=== PATIENT | male | born 1970 | race Caucasian/White ===

== ENCOUNTER 2017-01-20 08:47 | Emergency (ER) | payer OTHER ==
[~2017-01-20] VITALS: Ht 172.7 cm; Wt 85.7 kg
[2017-01-20 08:59] VITALS: BP 139/75; PULSE 71; RESP 16; TEMP 98.5; O2SAT 98
--- NOTE | 2017-01-20 09:44 | PD ---
HPI Chief Complaint: Abdominal Pain Time Seen by Provider: 09:38 Travel History International Travel<30 days: No Contact w/Intl Traveler<30days: No Traveled to known affect area: No History of Present Illness HPI Patient presents with complaints of abdominal/pelvic pain for approximately 3 weeks. Reports urinary frequency with normal stools. Pain is dull primarily in his pelvis region. Denies any blood per stool. Denies any nausea vomiting. Evaluated by his PCP with urinalysis 2. Urinalysis was normal. PSA within normal limits. Prostate exam was normal. Patient was started on Bactrim DS and reports improvement of his pain while taking medication. However pain returned one week ago. Of note he does conceal and carry and while he was in the antibiotic was not carrying. On the Sunday the pain returned patient had began to carry again. Admits to cinching his belt when he carries. PFSH Social History Tobacco Use: No Allergies-Medications (Allergen,Severity, Reaction): Coded Allergies: Penicillins (Verified Allergy, Unknown, 01/20/17) Reported Meds & Prescriptions Reported Meds & Active Scripts Active Reported Aspirin 81 Mg Chew 81 Mg CHEW DAILY Review of Systems General / Constitutional: No: Fever Eyes: No: Visual changes HENT: No: Headaches Cardiovascular: No: Chest Pain or Discomfort Respiratory: No: Shortness of Breath Gastrointestinal: Positive: Abdominal Pain Genitourinary: Positive: Frequency, No: Dysuria Musculoskeletal: No: Pain Skin: No Rash Neurologic: No: Weakness Psychiatric: No: Depression Endocrine: No: Polydipsia Hematologic/Lymphatic: No: Easy Bruising Physical Exam Narrative GENERAL: Well-nourished, well-developed patient. SKIN: Focused skin assessment warm/dry. HEAD: Normocephalic. EYES: No scleral icterus. No injection or drainage. NECK: Supple, trachea midline. No JVD or lymphadenopathy. CARDIOVASCULAR: Regular rate and rhythm without murmurs, gallops, or rubs. RESPIRATORY: Breath sounds equal bilaterally. No accessory muscle use. GASTROINTESTINAL: Abdomen soft, diffusely tender pelvic region, nondistended. MUSCULOSKELETAL: No cyanosis, or edema. BACK: Nontender without obvious deformity. No CVA tenderness. Patient refuses repeat prostate exam Data Data Last Documented VS Vital Signs Date Time Temp Pulse Resp B/P Pulse Ox O2 Delivery O2 Flow Rate FiO2 01/20/17 08:59 98.5 71 16 139/75 98 Orders Complete Blood Count With Diff (01/20/17 09:38) Comprehensive Metabolic Panel (01/20/17 09:38) Lipase (01/20/17 09:38) Lactic Acid (01/20/17 09:38) Urinalysis - C+S If Indicated (01/20/17 09:38) Ct Abd/Pel W Iv Contrast(Rout) (01/20/17 09:38) Iv Access Insert/Monitor (01/20/17 09:38) Ecg Monitoring (01/20/17 09:38) Oximetry (01/20/17 09:38) Sodium Chloride 0.9% Flush (Ns Flush) (01/20/17 09:45) Iohexol 350 Inj (Omnipaque 350 Inj) (01/20/17 10:20) Labs Laboratory Tests Test 01/20/17 01/20/17 09:30 09:50 Urine Collection Type CLEAN CATCH Urine Color YELLOW Urine Turbidity CLEAR Urine pH 5.5 Urine Specific [place] 1.028 Urine Protein NEG mg/dL Urine Glucose (UA) NEG mg/dL Urine Ketones TRACE mg/dL Urine Occult Blood TRACE Urine Nitrite NEG Urine Bilirubin NEG Urine Leukocyte Esterase NEG Urine RBC 0-3 /hpf Urine WBC 0-2 /hpf Urine Squamous Epithelial 0-5 /hpf Cells Urine Mucus FEW /lpf Microscopic Urinalysis Comment CULT NOT INDICATED Urine Collection Time 09:30 White Blood Count 5.1 TH/MM3 Red Blood Count 5.15 MIL/MM3 Hemoglobin 14.9 GM/DL Hematocrit 44.0 % Mean Corpuscular Volume 85.6 FL Mean Corpuscular Hemoglobin 29.0 PG Mean Corpuscular Hemoglobin 33.9 % Concent Red Cell Distribution Width 12.6 % Platelet Count 197 TH/MM3 Mean Platelet Volume 8.6 FL Neutrophils (%) (Auto) 64.3 % Lymphocytes (%) (Auto) 28.9 % Monocytes (%) (Auto) 4.7 % Eosinophils (%) (Auto) 1.0 % Basophils (%) (Auto) 1.1 % Neutrophils # (Auto) 3.2 TH/MM3 Lymphocytes # (Auto) 1.5 TH/MM3 Monocytes # (Auto) 0.2 TH/MM3 Eosinophils # (Auto) 0.1 TH/MM3 Basophils # (Auto) 0.1 TH/MM3 CBC Comment DIFF FINAL Differential Comment Sodium Level 140 MEQ/L Potassium Level 4.2 MEQ/L Chloride Level 107 MEQ/L Carbon Dioxide Level 27.4 MEQ/L Anion Gap 6 MEQ/L Blood Urea Nitrogen 12 MG/DL Creatinine 1.10 MG/DL Estimat Glomerular Filtration 71 ML/MIN Rate Random Glucose 96 MG/DL Lactic Acid Level 0.8 mmol/L Calcium Level 8.9 MG/DL Total Bilirubin 0.5 MG/DL Aspartate Amino Transf 18 U/L (AST/SGOT) Alanine Aminotransferase 33 U/L (ALT/SGPT) Alkaline Phosphatase 81 U/L Total Protein 7.0 GM/DL Albumin 4.0 GM/DL Lipase 142 U/L [facility] Medical Decision Making Medical Screen Exam Complete: Yes Emergency Medical Condition: Yes Differential Diagnosis Prostatitis, cystitis, UTI, abdominal strain Narrative Course Assessment and plan discussed with patient and at bedside. Labs within normal limits. Last 72 hours Impressions Abdomen/Pelvis CT 01/20/17 0938 Signed Impressions: Service Date/Time: Sunday, January 20, 2017 10:09 - CONCLUSION: 1. No evidence for hydronephrosis. 2. No acute inflammatory process. 3. A few diverticula in the sigmoid colon without diverticulitis. Armando Almaraz MD Start patient on oral Levaquin to cover hematuria and possible prostatitis. Discussion had concerning retesting for hematuria and possible referral to urology for cystoscope. Diagnosis Primary Impression: Abdominal pain Qualified Code: R10.30 - Lower abdominal pain Additional Impression: Hematuria Qualified Code: R31.9 - Hematuria, unspecified type Patient Instructions: General Instructions Additional Instructions: Encourage fluids and a cranberry supplement. Antibiotic prophylactically for hematuria. Discussed the pain could likely be abdominal strain while he carries his weapon. Encouraged rest fluids and Motrin. Follow-up with PCP. Return to the emergency room with any onset of new symptoms. Med/Other Pt SpecificInfo: Prescription(s) given Scripts Levofloxacin (Levaquin)500 Mg Jtmgtt313 Mg PO DAILY #7 TAB Prov:Nish Hinkle MD 01/20/17 Disposition: 01 DISCHARGE HOME Condition: Good Nish Hinkle MD Jan 20, 2017 09:44
[2017-01-20] MEDS ORDERED: SODIUM CHLORIDE 0.9% FLUSH 10 ML FLUSH IV FLUSH PRN (09:45)
[2017-01-20 09:56] LABS: AUTOMATED NEUTROPHIL # 3.2 TH/MM3 (1.8-7.7); BASOPHIL # 0.1 TH/MM3 (0-0.2); BASOPHIL % 1.1 % (0.0-2.0); EOSINOPHIL # 0.1 TH/MM3 (0-0.4); HEMO FLAGS DIFF FINAL; LYMPH % 28.9 % (9.0-44.0); LYMPHOCYTE # 1.5 TH/MM3 (1.0-4.8); MEAN CELL VOLUME 85.6 FL (80.0-100.0); MEAN CORPUSCULAR HGB CONC 33.9 % (32.0-36.0); MONO % 4.7 % (0.0-8.0); NEUT % 64.3 % (16.0-70.0); PLATELET COUNT 197 TH/MM3 (150-450); RED BLOOD COUNT 5.15 MIL/MM3 (4.50-5.90); RED CELL DISTRIBUTION WIDTH 12.6 % (11.6-17.2); WHITE BLOOD COUNT 5.1 TH/MM3 (4.0-11.0)
[2017-01-20 09:57] LABS: BLOOD, URINE TRACE (NEG); GLUCOSE,URINE NEG (NEG); KETONE, URINE TRACE mg/dL (NEG); NITRITE,URINE NEG (NEG); PH, URINE 5.5 (5.0-8.5)
[2017-01-20] MEDS ORDERED: ASPI81CH CHEW (10:01)
[2017-01-20 10:05] LABS: CHLORIDE 107 MEQ/L (98-107); POTASSIUM 4.2 MEQ/L (3.5-5.1); SODIUM (NA) 140 MEQ/L (136-145)
[2017-01-20 10:09] LABS: METHOD OF COLLECTION CLEAN CATCH; MUCUS URINE FEW /lpf (OCC); URINE COLOR YELLOW (YELLW/STRAW)
[2017-01-20 10:09] LABS: ANION GAP 6 MEQ/L (5-15); BICARBONATE 27.4 MEQ/L (21.0-32.0); BLOOD UREA NITROGEN 12 MG/DL (7-18)
[2017-01-20 10:10] LABS: COMMENT (UR) CULT NOT INDICATED; CULTURE IF INDICATED CULT NOT INDICATED; RBC, URINE 0-3 /hpf (0-3); SQUAMOUS EPITHELIAL CELL URINE 0-5 /hpf (0-5); WBC, URINE 0-2 /hpf (0-5)
[2017-01-20 10:12] LABS: ALT (GPT) 33 U/L (12-78); AST (GOT) 18 U/L (15-37); GLOMERULAR FILTRATION RATE 71 ML/MIN (>89)
[2017-01-20 10:13] LABS: TOTAL BILIRUBIN ADULT 0.5 MG/DL (0.2-1.0)
[2017-01-20 10:15] LABS: ALKALINE PHOSPHATASE 81 U/L (45-117)
[2017-01-20] MEDS ORDERED: IOHEXOL 350 MG/ML 10 ML VIAL (for RAD DIAG) IV ONE (10:20)
--- NOTE | 2017-01-20 10:25 | RADRPT ---
EXAM DATE/TIME: 01/20/2017 10:09 [place] COMPARISON: No previous studies available for comparison. INDICATIONS : Frequent urinatio, lower abd pain,. slight nausea. IV CONTRAST: 96 cc Omnipaque 350 (iohexol) IV ORAL CONTRAST: No oral contrast ingested. RADIATION DOSE: 12.11 CTDIvol (mGy) MEDICAL HISTORY : None SURGICAL HISTORY : None. ENCOUNTER: Initial ACUITY: 3 weeks PAIN SCALE: 2/10 LOCATION: Bilateral lower abdomen. TECHNIQUE: Volumetric scanning of the abdomen and pelvis was performed. Using automated exposure control and ad justment of the mA and/or kV according to patient size, radiation dose was kept as low as reasonably achievable to obtain optimal diagnostic quality images. DICOM format image data is available electro nically for review and comparison. FINDINGS: LOWER LUNGS: The visualized lower lungs are clear. LIVER: Homogeneous density without lesion. There is no dilation of the biliary tree. No calcified gallston es. SPLEEN: Normal size without lesion. PANCREAS: Within normal limits. KIDNEYS: Normal in size and shape. There is no mass, stone or hydronephrosis. ADRENAL GLANDS: Within normal limits. VASCULAR: There is no aortic aneurysm. BOWEL/MESENTERY: A few scattered diverticula in sigmoid colon. No diverticulitis. There is no free intraperitoneal ai r or fluid. Appendix normal. ABDOMINAL WALL: Within normal limits. RETROPERITONEUM: There is no lymphadenopathy. BLADDER: No wall thickening or mass. Not well distended. No bladder calculi. REPRODUCTIVE: Within normal limits. INGUINAL: There is no lymphadenopathy or hernia. MUSCULOSKELETAL: Within normal limits for patient age. CONCLUSION: 1. No evidence for hydronephrosis. 2. No acute inflammatory process. 3. A few diverticula in the sigmoid colon without diverticulitis. Armando Almaraz MD on January 20, 2017 at 10:20 Board Certified Radiologist. This report was verified electronically.
[2017-01-20] MEDS ORDERED: LEVA500T20 PO (10:44)
[2017-01-20 10:53] VITALS: BP 145/74
== END 2017-01-20 11:02 | disposition home or self-care (01) ==
LOC: PHED 08:47
DX: R10.2 Pelvic and perineal pain (principal); R35.0 Frequency of micturition; R31.9 Hematuria, unspecified
CPT/HCPCS: 74177; 80053; 81001; 83605; 83690; 85025; 99285; Q9967

== ENCOUNTER 2017-01-31 06:29 | Day surgery (SDC) | payer OTHER ==
[~2017-01-31] VITALS: Ht 172.7 cm; Wt 85.7 kg
[~2017-01-31 06:29] MED LIST: ASPI81CH CHEW; LEVA500T20 PO
[2017-01-31] MEDS ORDERED: IOHEXOL 350 MG/ML 100 ML BTL (for Cath Lab) OTHER ONE (06:30)
[2017-01-31] MEDS ORDERED: ZOLP10TA3 PO (07:00)
[2017-01-31] MEDS ORDERED: SODIUM CHLOR 0.9% 1000 ML INJ 1,000 ML IV SCH (07:00)
[2017-01-31 07:04] VITALS: BP 141/90; PULSE 72; RESP 18; TEMP 99; O2SAT 99
[2017-01-31] MEDS ORDERED: HEPARIN-NS/PF INJ 500 ML ONE (08:10)
[2017-01-31] MEDS ORDERED: MIDAZOLAM HCL 2 MG/2 ML VIAL ONE (08:10)
--- NOTE | 2017-01-31 08:55 | CATHPROC ---
[facility] HIS Report Study Information Study Number Admission Scheduled Start Study Start [id number] Jan 31 2017 6:29AM 01/31/2017 Jan 31 2017 8:07AM Michael Service Cardiac Catheterization Admit Source Facility Department Other [facility] - [facility] [employer] Sales Representative Physician and Clinical Staff Initial Duane Chaudhry Strategic Planning DirectorYamilet Rm,SLADE Strategic Planning Director Nazanin Vallecillo BSRN Other cathlab, cathlab Recorder Reece, Elva,STAFF DEVELOPMENT NURSE TECH2 Scrub Jeannie Georges RCIS TECH2 Procedures Performed Procedure Location (Site) Vessel Name Angiogram LV LV Ventricle Coronary Angiograms LCA Left Coronary Coronary Angiograms RCA Right Coronary L Heart Cath Equipment Time Coat Check Attendant Description Size Mfg Part Number Used/Scraped TRANSDUCER, TRUWAVE [id number] 08:17 HARRIS LLOYD * Used W/STOCKCOCK *[id number] 534-620T *[id number] 534-620T *[id number] 534-621T *[id number] 534-621T *[id number] 534-650S *[id number] 534-650S *[id number] 08:17 [employer] PACK, CCL CUSTOM * Used *[id number] 08:17 [employer] PACER PEN, SKIN DUAL W/ RULER * Used *[id number] 08:17 [employer] MEDICAL SHEATH, FR6.5 PRELUDE 11CM FR 6.5 038ACT Used *[id number] 08:17 [employer] MEDICAL WIRE, 3MMJ .035 180CM 180CM Used *[id number] 08:17 NAMIC MANIFOLD, 4 PORT * Used *[id number] 08:17 [employer] OMNIPAQUE, 350 MG, 100ML 100ML [id number] Used [id number] 08:17 [employer] MEDICAL BLANKET,WARM AIR CCL * Used *[id number] History: Current Medications Medication Dosage/Unit Route Frequency Last Date/Time Taken ASA History: Allergies Allergy Reaction Penicillins History: Risk Factors Family History of Hypertension Dyslipidemia Previous ND Previous Heart Failure Premature CAD No Yes No No No Prior Valve Prior PCI Prior CABG Surgery No No No Cerebrovascular Peripheral Artery Chronic Lung On Dialysis Diabetes Disease Disease Disease No No No No No History: Symptoms/Diagnosis Selection Items Chest pain History: Stress Tests Stress or Imaging Studies Performed Yes Standard Exercise Stress Stress Test Result Stress Test Ischemia Risk/Extent Test Yes Positive Low Stress Echo No Stress Test SPECT No Stress Test CMR No Cardiac CTA Coronary Calcium Score No No History: Other Current Smoker No Labs Hgb (g/dl) Hct (%) WBC (l/cumm) Platelets (thousands) 11.60-17.00 35.00-51.00 4.00-11.00 150.00-450.00 15.3 44.9 5.7 204 Glucose (mg/dl) BUN (mg/dl) Creatinine (mg/dl) BUN:Creatinine (1:x) 74.00-106.00 7.00-18.00 0.50-1.30 10.00-20.00 79 14 1.0 14 Na (meq/l) K (meq/l) 136.00-145.00 3.50-5.10 144 4.5 Medication Medication Total Dose (Bolus/Oral) Medication Total Dosage/Unit 1% XYLOCAINE 15 mL VERSED 2 mg Medications (Bolus/Oral) Medication Time Given Dosage/Unit Administered By Reason VERSED 01/31/2017 8:17:20 AM 2 mg Yamilet Carney 2 mg VERSED given in lab by Yamilet Carney, RN in Left Antecubital via Peripheral IV. Ordered by Duane Gresham. 1% XYLOCAINE 01/31/2017 8:22:57 AM 15 mL Duane Saavedra 15 mL 1% XYLOCAINE given in lab by Duane Saavedra in Right Groin via Subcutaneous. Ordered by Duane Mobley ms. Medication (Drip) Medication Time Given Dosage/Unit Concentration/Unit Diluent (ml) Solution IV Solutions 01/31/2017 8:07:18 AM 0 mL (IV) 500 NaCl .9 Patient arrived on IV Solutions given by josh moreno in Left Antecubital via Peripheral IV. Pump /Drip Flow = 20 ml/hr using NaCl .9. Initial Case Assessment Cardiovascular HR NIBP 75 160/88 Edema Present Skin color Skin None Normal Warm Dry Circulatory - Right Pulses Dorsalis Pedis Femoral 3 3 Scale (0,1,2,3,4,d) Circulatory - Left Pulses Dorsalis Pedis Femoral 3 3 Scale (0,1,2,3,4,d) Respiration - General Respiration Rate SpO2 (%) (B/min) 12 100 Final Case Assessment Cardiovascular HR NIBP 66 137/89 Edema Present Skin color Skin None Normal Warm Dry Circulatory - Right Pulses Dorsalis Pedis Femoral 3 3 Scale (0,1,2,3,4,d) Circulatory - Left Pulses Dorsalis Pedis Femoral 3 3 Scale (0,1,2,3,4,d) Respiration - General Respiration Rate SpO2 (%) (B/min) 12 100 Chronological Log Time Study Chronological Log 8:07:03 Patient arrived via Bed. 8:07:04 Patient Name, D.O.B, / Armband Verified By R.N. 8:07:08 Consent signed by the physician and the patient and verified by the Home Furnish[employer] Sales Representative staff. 8:07:09 Pre-op and post- op instructions given; patient acknowledges understanding of instructions. 8:07:11 Patient has been NPO for More than 6Hrs. 8:07:12 Skin Breakdown- 8:07:14 Patient Warmer Placed on the Table. 8:07:17 A # 20 IV was noted in the Antecubital (left). Grade = 0 Patient arrived on IV Solutions given by cathlabjosh in Left Antecubital via Peripheral IV. Pump/Drip Flow = 20 8:07:18 ml/hr using NaCl .9. 8:07:22 History and physical on the chart or being dictated. Vitals capture started with the following parameters, Patient=Adult, Interval=5 min, Initial Pre ccfsa=191 mmHg, 8:07:47 Deflation Rate=5 mmHg, Cuff placed on Left Arm 8:08:29 HR=75 bpm, AAPS=561/88 mmhg, SpO2=97.0 %, Resp=9 B/min, Pain=0, Beatriz=10, Byers=2 Assessment: Initial Case, HR=75 BPM, LUYF=144/88 mmhg, Edema=None, Color=Normal, Skin = Warm, Dr y Right Pulses: Wade Ped=3, Femoral=3 8:11:43 Left Pulses: Wade Ped=3, Femoral=3 Respiration: Resp=12 B/min, IkB5=283 % 8:13:28 HR=69 bpm, RQJZ=934/87 mmhg, LmO8=051.0 %, Resp=12 B/min, Pain=0, Beatriz=10, Byers=2 8:17:20 2 mg VERSED given in lab by Yamilet Carney, RN in Left Antecubital via Peripheral IV. Order ed by Duane Saavedra. 8:18:23 HR=76 bpm, TOQE=621/82 mmhg, PjJ3=176.0 %, Resp=20 B/min, Pain=0, Beatriz=10, Byers=2 8:18:42 Bilateral groins prepped with 2% chlorhexidine, and with a 3 min. waiting time. 8:19:31 Pressure channel 1 zeroed. Time Out. Correct patient, correct procedure,correct physician, power injector not loaded with c ontrast with surgical 8:22:05 team present. Time Out Concurred by , individual staff in procedure 8:22:55 Case Start 8:22:57 15 mL 1% XYLOCAINE given in lab by Duane Saavedra in Right Groin via Subcutaneous. Ordered by Duane Saavedra. 8:23:26 HR=68 bpm, DFDP=355/83 mmhg, SpO2=97.0 %, Resp=15 B/min, Pain=0, Beatriz=10, Byers=2 8:24:07 Reference ECG taken 8:25:25 Access site was Right Femoral Artery. 8:25:32 A SHEATH, FR6.5 PRELUDE 11CM FR 6.5 was advanced into the Fem Art (right) using the Modified Seldinger technique. A JL 4.0 INFINITI CATHETER FR 6 was advanced over a wire. OMNIPAQUE, 350 MG, 100ML 100ML was use d for 8:25:54 injections. Recorded Pressure: Ao, HR=69, Condition=Condition 1 8:26:43 (Aorta) Ao 130/80/104 8:27:04 The LCA was injected and visualized at various angles. OMNIPAQUE, 350 MG, 100ML 100ML used. 8:28:25 HR=67 bpm, LGZX=319/81 mmhg, SpO2=98.0 %, Resp=13 B/min, Pain=0, Beatriz=10, Byers=2 8:29:15 Catheter was removed A JR 4.0 INFINITI CATHETER FR 6 was advanced over a wire. OMNIPAQUE, 350 MG, 100ML 100ML was use d for 8:29:21 injections. 8:29:59 The RCA was injected and visualized at various angles. OMNIPAQUE, 350 MG, 100ML 100ML used. 8:30:46 Catheter was removed A PIGTAIL STR INFINITI CATHETER FR 6 was advanced over a wire. OMNIPAQUE, 350 MG, 100ML 100ML wa s used for 8:31:02 injections. 8:33:26 HR=66 bpm, ZOAP=119/76 mmhg, SpO2=98.0 %, Resp=10 B/min, Pain=0, Beatriz=10, Byers=2 Recorded Pressure: LV, HR=65, Condition=Condition 1 8:34:59 (Left Ventricle) LV 114/4/17 8:36:04 The LV was injected at 12 cc/sec for a total of 30. OMNIPAQUE, 350 MG, 100ML 100ML used. Recorded Pressure: LV, Ao, HR=65, Condition=Condition 1 8:36:22 (Left Ventricle) LV 112/6/26, (Aorta) Ao 123/69/92 8:36:46 Catheter was removed 8:38:18 Case End 8:38:25 Catheter(s) removed without difficulty 8:38:27 HR=68 bpm, YAEY=706/82 mmhg, SpO2=97.0 %, Resp=18 B/min, Pain=0, Beatriz=10, Byers=2 8:40:14 Sheath removed; pressure applied to access site. 8:43:26 HR=64 bpm, POKG=956/79 mmhg, SpO2=97.0 %, Resp=13 B/min, Pain=0, Beatriz=10, Byers=2 8:48:29 HR=66 bpm, CSTV=914/81 mmhg, SpO2=95.0 %, Resp=20 B/min, Pain=0, Beatriz=10, Byers=2 8:53:57 Sterile dressing applied to site 8:53:59 No case complications noted. 8:54:01 Cine recording checked. 8:54:05 Bedside Report will be given. 8:54:07 Contrast Scanned 8:54:11 HR=66 bpm, CZRN=622/89 mmhg, OnE9=868.0 %, Resp=12 B/min, Pain=0, Beatriz=10, Byers=2 8:54:12 A Left Heart Cath was performed. 8:54:37 Vitals capture stopped. Assessment: Final Case, HR=66 BPM, TDQQ=984/89 mmhg, Edema=None, Color=Normal, Skin = Warm, Dr y Right Pulses: Wade Ped=3, Femoral=3 8:54:41 Left Pulses: Wade Ped=3, Femoral=3 Respiration: Resp=12 B/min, MtK0=488 % 8:55:12 Patient moved to stretcher End Study - Contrast Media Used In Study Contrast Total Opened (mL) Total Used (mL) Total Wasted (mL) Omnipaque 75 75 0 End Study - Maximum Contrast Load Max Contrast Load (mL) 428.4 End Study - Radiation Exposure Fluoro Time (minutes) 1.1 End Study - Patient Disposition Complications Transferred To Telemetry Bed
[2017-01-31] MEDS ORDERED: LIDOCAINE HCL 1% 50 ML VIAL INFIL PRN (09:00)
[2017-01-31] MEDS ORDERED: LORazepam 2 MG/ML VIAL IV PRN (09:00)
[2017-01-31] MEDS ORDERED: SODIUM CHLOR 0.9% 250 ML INJ 250 ML IV PRN (09:00)
[2017-01-31] MEDS ORDERED: ATROPINE SULFATE 1 MG/ML VIAL IV PRN (09:00)
[2017-01-31] MEDS ORDERED: MISC INFORMATION XX ONE (09:00)
[2017-01-31] MEDS ORDERED: ONDANSETRON HCL 4 MG/2 ML VIAL IV PRN (09:00)
[2017-01-31] MEDS ORDERED: BACITRACIN OINT 0.9 GM PKT TOP ONE (09:00)
--- NOTE | 2017-02-28 12:20 | MA ---
cc: TOMMY HITCHCOCK MD DATE: 02/05/2017 PROCEDURE Cardiac catheterization. PROCEDURAL STATEMENTS The patient was prepped and draped in the usual fashion. A 6 sheath was inserted percutaneously in the right femoral artery. Coronary angiography was done with Chip preformed catheters. Left ventriculography was done with a pigtail catheter. RESULTS The left main coronary was normal. The left anterior descending artery gave off a small diagonal and first septal chief lock operator branches and was totally occluded. The left circumflex artery arose from the left main. It gave off a rather large obtuse marginal branch. The circumflex system itself demonstrated some very minor luminal irregularities but no significant stenoses were noted. The right coronary was anatomically dominant and a relatively large system. No significant stenoses were noted throughout its course. Collateralization of the LAD was noted from collaterals from the distal portion of the right coronary. LEFT VENTRICULOGRAPHY The left ventricle was normal in size. Overall left ventricular ejection fraction was normal. EF was estimated at 65-70%. No regional wall motion abnormality was present. 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 Medical management will be continued. MD AVA Doyle/KAREN /12:04 PM /12:10 PM
== END 2017-01-31 13:45 | disposition home or self-care (01) ==
LOC: HDIC 06:29 → HDOC 06:29
PROVIDERS: ATTEND Internal Medicine Cardiovascular Disease
DX: I25.119 Atherosclerotic heart disease of native coronary artery with unspecified angina pectoris (principal); E78.5 Hyperlipidemia, unspecified; G47.00 Insomnia, unspecified; M79.1 Myalgia; R76.8 Other specified abnormal immunological findings in serum
CPT/HCPCS: 93458; C1769; C1893; J1644; J2250; J7030; Q9967